=== PATIENT | male | born 1960 | race Caucasian/White ===

== ENCOUNTER 2017-05-10 11:15 | Outpatient (CLI) | payer OTHER ==
--- NOTE | 2017-05-10 13:02 | RAD ---
LUMBAR SPINE FOUR VIEWS: HISTORY: Low back pain. FINDINGS: The lumbar vertebrae maintain height. There is mild loss of disk space at L4-L5 and at L5-S1. Minim al anterolisthesis of L5-S1, which appears stable on flexion and extension views. Facet hypertrophy. No evidence of spondylolysis. IMPRESSION: There are mild degenerative changes of the lumbar spine, as described, with slight listhesis at L5-S1 and posterior facet hypertrophy at L4-L5 and at L5-S1. POS: MIREYA
== END 2017-05-10 11:16 | disposition home or self-care (01) ==
LOC: TBSIIMAG 11:15
PROVIDERS: ATTEND Neurological Surgery
DX: M54.5 Low back pain (principal); M47.817 Spondylosis without myelopathy or radiculopathy, lumbosacral region; M43.17 Spondylolisthesis, lumbosacral region
CPT/HCPCS: 72110

== ENCOUNTER 2017-06-07 10:45 | Outpatient (CLI) | payer OTHER ==
--- NOTE | 2017-06-07 12:39 | MRI ---
MRI LUMBAR SPINE: Date: 06-07-17 Provided Clinical History: Lumbar radiculopathy. FINDINGS: Five lumbar vertebral bodies are demonstrated on the lumbar spine radiographs of 05-10-17. Lumbar ali gnment remains normal. Vertebral body heights and intervertebral disc space heights appear preserved. Mild disc space narrowing at L5-S1. The conus medullaris is normal in signal and terminates at an ap propriate level. The visualized extraspinal soft tissues appear unremarkable. L1-2: There is no significant central canal or foraminal narrowing. L2-3: There is no significant central canal or foraminal narrowing apparent. L3-4: There is mild bilateral facet arthritis. There is no significant central canal or foraminal devin rowing apparent. L4-5: There is bilateral facet arthritis and a broad based disc bulge. There is eccentricity of the d isc bulge in the left foraminal region with associated annular tear. This produces mild left foramina l narrowing. L5-S1: There is a unilateral right sided pars defect and right sided facet arthritis. There is a broa d based disc bulge. The combination of disc bulge and facet arthritis produce right foraminal narrowi ng. There is no significant left sided foraminal narrowing or central canal stenosis apparent. IMPRESSION: 1. Lower lumbar disc and facet degenerative changes in additional to right sided pars defect at L5-S1 producing areas of foraminal narrowing as described above. POS: MIREYA
== END 2017-06-07 10:46 | disposition home or self-care (01) ==
LOC: TBSIIMAG 10:45
PROVIDERS: ATTEND Neurological Surgery
DX: M47.26 Other spondylosis with radiculopathy, lumbar region (principal); M99.73 Connective tissue and disc stenosis of intervertebral foramina of lumbar region
CPT/HCPCS: 72148

== ENCOUNTER 2019-11-25 13:42 | Inpatient (IN) | payer OTHER ==
[2019-11-25] MEDS ORDERED: Iopamidol-370 76% 500 ML 1 ML ONE (13:48)
[2019-11-25 14:24] LABS: #Basophils 0.1 thou/uL (0.0-0.2); #Eosinphils 0.2 thou/uL (0.0-0.7); #Lymphocytes 1.6 thou/uL (1.20-3.40); #Monocytes 0.6 thou/uL (0.11-0.59); #Neutrophils 5.7 thou/uL (1.40-6.50); %Basophils 0.6 % (0.0-1.0); %Eosinophils 1.9 % (0.0-10.0); %Lymphocytes 19.4 % (21.0-51.0); %Monocytes 7.8 % (0.0-10.0); %Neutrophils 70.4 % (42.0-75.0); Hemoglobin 16.7 g/dL (14.0-18.0); Mean Corpuscular HGB CONC 33.9 g/dL (32.0-36.0); Mean Corpuscular Hemoglobin 30.1 pg (27.0-31.0); Mean Corpuscular Volume 88.8 fL (78.0-98.0); Mean Platelet Volume 7.8 fL (7.4-10.4); Platelet Count 279 thou/uL (130-400); RBC Distribution Width 11.8 % (11.5-14.5); Red Blood Cell (RBC) Count 5.55 mill/uL (4.70-6.10); White Blood Cell (WBC) Count 8.1 thou/uL (4.8-10.8)
--- NOTE | 2019-11-25 14:36 | CT ---
Exam: CT angiogram of the chest HISTORY: Chest pain. COVID +3 weeks ago. Shortness of breath. COMPARISON: None TECHNIQUE: CT angiogram of the chest is performed in the axial plane. Three-dimensional reformatted i mages are submitted for interpretation FINDINGS: Mediastinum: No mass, lymphadenopathy or hematoma. HEART: Normal size. No significant pericardial fluid. Aorta: No aneurysm or dissection Upper solid abdominal viscera: CT evidence of cholelithiasis without evidence of cystitis. Nonspecifi c periportal edema. Trachea and central bronchi: Patent Pleural spaces: No effusion Lung parenchyma: Minimal groundglass opacity involving the right lower lobe. Pneumothorax: None Osseous structures: Remote mild compression fracture at T6. Pulmonary arteries: Adequate contrast opacification pulmonary arterial system to the level of segment al arteries. No filling defect to suggest pulmonary embolism IMPRESSION: 1. No evidence of pulmonary artery embolism to the level of the segmental arteries. 2. Parenchymal opacities in the right lower lobe likely representing infiltrate. Location and appeara nce may be due to atypical infiltrate/pneumonia.
--- NOTE | 2019-11-25 14:45 | RAD ---
EXAM: Single view of the chest HISTORY: Covid positive with chest pain COMPARISON: 01/21/2012 FINDINGS: Single view of the chest shows a normal sized cardiomediastinal silhouette. There are quest ionable increased interstitial markings in the lung bases. The bones are unremarkable. IMPRESSION: Questionable bilateral lower lobe infiltrates
[2019-11-25 14:51] LABS: ALT (SGPT) 220 U/L (8-55); AST (SGOT) 228 U/L (5-34); Albumin 4.2 g/dL (3.5-5.0); Alkaline Phosphatase 117 U/L (40-110); Anion Gap 13 mmol/L (10-20); BUN (Urea Nitrogen) 12 mg/dL (8.4-25.7); Bilirubin, Total 1.5 mg/dL (0.2-1.2); Calc. Creatinine Clearance 0 mL/min (70-130); Calcium 9.4 mg/dL (7.8-10.44); Carbon Dioxide 29 mmol/L (22-29); Chloride 101 mmol/L (98-107); Estimated GFR-MDRD 79; Globulin 3.3 g/dL (2.4-3.5); Glucose 99 mg/dL (70-105); Potassium 3.9 mmol/L (3.5-5.1); Protein, Total 7.5 g/dL (6.0-8.3); Sodium 139 mmol/L (136-145)
[2019-11-25] MEDS ORDERED: Ketorolac Tromethamine 30 MG/ML VIAL ONE (14:52)
[2019-11-25] MEDS ORDERED: Azithromycin 500 MG VIAL ONE (14:52)
[2019-11-25] MEDS ORDERED: cefTRIAXone\\ROCEPHIN 1 GM VIAL ONE (16:15)
[2019-11-25] MEDS ORDERED: Sodium Chloride 0.9% 100 ML ONE (16:15)
[2019-11-25] MEDS ORDERED: Acetaminophen 325 MG TAB PO PRN (16:39)
[2019-11-25] MEDS ORDERED: Bisacodyl 5 MG TAB PO PRN (16:39)
[2019-11-25] MEDS ORDERED: Dexamethasone 4 MG TAB ONE (16:43)
[2019-11-25 17:26] LABS: Lactic Acid 2.8 mmol/L (0.5-2.2)
--- NOTE | 2019-11-25 17:53 | HP ---
PRIMARY CARE PROVIDER: Jagjit Jeong MD CHIEF COMPLAINT: Chest pain. HISTORY OF PRESENT ILLNESS: Mr. Call is a pleasant 59-year-old gentleman, who was seen at [facility] on November 25, 2019. Three weeks ago, he had flu-like symptoms. He reports having shortness of breath with exertion. He reports chronic cough that has not changed recently. He reports body aches. He was tested for COVID on November 10, 2019, after approximately a week of symptoms. He was found to be positive for COVID-19 by PCR. His symptoms resolved. He was doing well until today morning when he developed chest pain around 2 a.m. he reports it as sharp, across lower chest, pleuritic, accompanied by shortness of breath, not accompanied by lightheadedness or nausea, no known relieving factors. He also reports checking his blood pressure and finding that it was high. He, therefore, presented to the emergency room. In the emergency room, he was found to have pulmonary infiltrates. He is being admitted for pneumonia. He reports that his chronic cough has not changed. He also denies any fevers. REVIEW OF SYSTEMS: All systems were reviewed and found to be negative except for the pertinent positives mentioned above. PAST MEDICAL HISTORY: Significant for gastroesophageal reflux disease and pneumothorax. PAST SURGICAL HISTORY: Back surgery, hip surgery, and shoulder surgery. SOCIAL HISTORY: The patient is an ex-smoker. He denies alcohol use or recreational drug use. FAMILY HISTORY: He denies any family history of premature coronary artery disease. ALLERGIES: NO KNOWN DRUG ALLERGIES. CURRENT MEDICATIONS: He takes a medication for gastroesophageal reflux disease, but does not know the name. PHYSICAL EXAMINATION: GENERAL: Mr. Call is awake and alert, not in acute distress. VITAL SIGNS: He is afebrile. Blood pressure is 130/70, pulse 86, respiratory rate 14, and oxygen saturation 96% on room air. EYES: No scleral icterus. No conjunctival pallor. ENT: Moist mucosal membranes. No oropharyngeal erythema or exudates. NECK: Supple and nontender. Trachea is midline. RESPIRATORY: Accessory muscles of breathing are not active. Chest wall movements are symmetric bilaterally. Lung examination reveals bi-basal bronchial breathing. CARDIOVASCULAR: S1 and S2 are heard, regular. Peripheral pulses palpable. ABDOMEN: Soft and nontender. Bowel sounds are heard. NEUROLOGIC: Cranial nerves 2 through 12 are intact. MUSCULOSKELETAL: Power is 5/5 in all 4 extremities. SKIN: No rashes or subcutaneous nodules. LYMPHATIC: No cervical lymphadenopathy. PSYCHIATRIC: Normal mood. Normal affect. The patient is oriented to person, place, and time. LABORATORY DATA: Mr. Call's labs and investigations were reviewed. Electrocardiogram showed normal sinus rhythm, no ST changes to suggest an acute coronary syndrome. Chest x-ray showed questionable bilateral lower lobe infiltrates. CT angiogram of the chest did not show any evidence of pulmonary embolism. He had parenchymal opacities in the right lower lobe, likely representing infiltrate. He has an unremarkable CBC, normal electrolytes, normal creatinine, elevated total bilirubin of 1.5, elevated AST of 228, elevated ALT of 220, and elevated alkaline phosphatase of 117. Lactic acid is elevated at 2.4. Troponin I is normal. ASSESSMENT AND PLAN: Mr. Call is a pleasant 59-year-old gentleman, who was seen at [facility] on November 25, 2019. His problem list includes: 1. Pneumonia: Mr. Call is presenting with pneumonia, at least of the right lower lobe. He will be admitted to the hospital for further management. He has received ceftriaxone and azithromycin, is currently receiving dexamethasone. I will continue all 3 given his recent diagnosis of COVID-19 infection. Infectious Disease Service will be consulted for opinion and help with management. 2. Abnormal liver function tests: Could be secondary to COVID-19 infection. We will recheck. If they are not improving, we will investigate further. 3. Gastroesophageal reflux disease: We will start him on PPI. Many thanks for allowing me to participate in your patient's care. Please feel free to contact me with any questions or concerns. LEVEL OF RISK: Moderate. LEVEL OF COMPLEXITY: Moderate. Job ID: [id number]
[2019-11-25] MEDS ORDERED: Ondansetron PF 4 MG/2 ML Vial IVP PRN (18:28)
[2019-11-25] MEDS ORDERED: Ondansetron ODT 4 MG TAB SL PRN (18:28)
[2019-11-25] MEDS: Sodium Chloride 0.9% 1,000 ML IV SCH (20:19)
[2019-11-25] MEDS: Enoxaparin Sodium 40 MG/0.4 ML SYRINGE SC SCH (20:41)
[2019-11-26] MEDS: Sodium Chloride 0.9% 1,000 ML IV SCH (00:19)
[2019-11-26 00:48] VITALS: BMI 32.6
[2019-11-26 07:06] LABS: #Lymphocytes 0.7 thou/uL (1.20-3.40); #Monocytes 0.3 thou/uL (0.11-0.59); %Basophils 0.1 % (0.0-1.0); %Eosinophils 0.3 % (0.0-10.0); %Lymphocytes 10.4 % (21.0-51.0); %Monocytes 3.9 % (0.0-10.0); %Neutrophils 85.4 % (42.0-75.0); Hemoglobin 15.7 g/dL (14.0-18.0); Mean Corpuscular HGB CONC 33.7 g/dL (32.0-36.0); Mean Corpuscular Hemoglobin 29.8 pg (27.0-31.0); Mean Corpuscular Volume 88.4 fL (78.0-98.0); Platelet Count 263 thou/uL (130-400); RBC Distribution Width 11.9 % (11.5-14.5); Red Blood Cell (RBC) Count 5.27 mill/uL (4.70-6.10)
[2019-11-26 07:54] LABS: ALT (SGPT) 815 U/L (8-55); AST (SGOT) 619 U/L (5-34); Albumin 3.8 g/dL (3.5-5.0); Alkaline Phosphatase 158 U/L (40-110); Anion Gap 11 mmol/L (10-20); BUN (Urea Nitrogen) 12 mg/dL (8.4-25.7); Bilirubin, Total 3.7 mg/dL (0.2-1.2); Calc. Creatinine Clearance 112 mL/min (70-130); Calcium 8.9 mg/dL (7.8-10.44); Carbon Dioxide 27 mmol/L (22-29); Chloride 106 mmol/L (98-107); Estimated GFR-MDRD 78; Globulin 2.8 g/dL (2.4-3.5); Glucose 137 mg/dL (70-105); Potassium 4.6 mmol/L (3.5-5.1); Protein, Total 6.6 g/dL (6.0-8.3); Sodium 139 mmol/L (136-145)
[2019-11-26] MEDS ORDERED: Dexamethasone 4 MG TAB PO SCH (08:00)
[2019-11-26] MEDS: Enoxaparin Sodium 40 MG/0.4 ML SYRINGE SC SCH ×2 (09:04→21:17)
[2019-11-26 11:20] LABS: Prothrombin Time 12.9 sec (12.0-14.7)
[2019-11-26 11:28] LABS: ALT (SGPT) 970 U/L (8-55); AST (SGOT) 694 U/L (5-34); Acetaminophen Less than 6.0 mcg/mL (10.0-30.0); Alkaline Phosphatase 178 U/L (40-110); Bilirubin, Direct 3.1 mg/dL (0.1-0.3); Bilirubin, Total 3.9 mg/dL (0.2-1.2); Lipase 26 U/L (8-78); Protein, Total 7.1 g/dL (6.0-8.3)
[2019-11-26 11:49] LABS: HBCM Index 0.13 S/CO (0-0.79); HBSAg Index 0.19 S/CO (0-0.99); Hep A IgM AB Non-Reactive (NonReactive); Hep A IgM S/CO 0.22 S/CO (0-0.79); Hep B Surf Ag Non-Reactive S/CO (NonReactive); Hep C IgG Ab Non-Reactive (NonReactive); Hep C Index 0.25 S/CO (0-0.79); Hepatitis B Core IgM Abs Non-Reactive (NonReactive)
[2019-11-26 12:58] LABS: Troponin I 0.011 ng/mL (< 0.028)
[2019-11-26] MEDS ORDERED: Azithromycin 500 MG in Sodium Chloride 0.9% 250 ML 250 ML IVPB SCH (15:00)
--- NOTE | 2019-11-26 15:31 | PDOC.HOSPP ---
- Subjective Encounter Date: 11/26/19 Encounter Time: 08:40 Subjective: Pt seen for followup re: pneumonia. Denies chest pain, shortness of breath, fevers or chills. - Objective Vital Signs & Weight: Vital Signs (12 hours) Temp Pulse Resp BP Pulse Ox 11/26/19 12:45 97.9 F 104 H 18 147/81 H 95 11/26/19 09:05 97.9 F 106 H 18 155/75 H 96 11/26/19 04:00 97.9 F 99 18 141/77 H 96 Weight Weight 215 lb I&O: 11/25/19 11/26/19 11/27/19 06:59 06:59 06:59 Intake Total 2460 Balance 2460 Result Diagrams: 11/26/19 06:55 11/26/19 06:55 Additional Labs: Labs and MARs reviewed by [place] Hospitalist ROS - Review of Systems Respiratory: denies: cough, dry, shortness of breath, hemoptysis, SOB with excertion, pleuritic pain, sputum, wheezing Cardiovascular: denies: chest pain, palpitations, orthopnea, paroxysmal noc. dyspnea, edema, light headedness - Medication Medications: Active Medications Generic Name Dose Route Start Last Admin Trade Name Freq PRN Reason Stop Dose Admin Dexamethasone 6 mg 11/26/19 08:00 11/26/19 09:04 Decadron PO 6 mg QAM-WM CHANELLE Administration Enoxaparin Sodium 40 mg 11/25/19 21:00 11/26/19 09:04 Lovenox SC 40 mg 0900,2100 CHANELLE Administration Pantoprazole Sodium 40 mg 11/26/19 09:00 11/26/19 09:04 Protonix PO 40 mg DAILY CHANELLE Administration Sodium Chloride 10 ml 11/25/19 21:00 11/26/19 09:04 Flush - Normal Saline IVF 10 ml Q12HR CHANELLE Administration - Exam General Appearance: awake alert Eye: scleral icterus ENT: normocephalic atraumatic, moist mucosa Neck: supple, no thyromegaly Heart: RRR, no rubs Respiratory: CTAB Gastrointestinal: soft, non-tender, non-distended, normal bowel sounds Gastrointestinal - other findings: Scott's sign negative Psychiatric: normal affect, normal behavior Hosp A/P (1) Pneumonia due to COVID-19 virus Code(s): U07.1 - COVID-19; J12.89 - OTHER VIRAL PNEUMONIA Status: Acute (2) Abnormal LFTs Code(s): R94.5 - ABNORMAL RESULTS OF LIVER FUNCTION STUDIES Status: Acute (3) GERD (gastroesophageal reflux disease) Code(s): K21.9 - GASTRO-ESOPHAGEAL REFLUX DISEASE WITHOUT ESOPHAGITIS Status: Chronic - Plan Continue dexamethasone. Cholestatic picture - check hepatitis panel, REZA. If LFTs do not improve, check US abdo/ consider GI consult. Could be secondary to COVID 19 infection vs other etiologies. Continue Protonix.
[2019-11-26] MEDS ORDERED: cefTRIAXone\\ROCEPHIN 1 GM in Sodium Chloride 0.9% 100 ML IVPB SCH (16:00)
[2019-11-26] MEDS ORDERED: Iopamidol-370 76% 500 ML 1 ML ONE (16:34)
--- NOTE | 2019-11-26 18:07 | CON ---
DATE OF CONSULTATION: 11/26/2019 REASON FOR CONSULTATION: Recovered from COVID with abnormal liver function tests. HISTORY OF PRESENT ILLNESS: A 59-year-old who has had chronic history of what he describes as heartburn and burping sensations for the past few months. He was being worked up by his PCP, but then he developed COVID infection. He was treated at home and never got very ill and did not have to take any treatments, and he recovered , and then on the day of admission, he developed this pretty intense pain across the anterior chest and in the back area lasting for about an hour and then he presented to the emergency room, was admitted, had a CT angiogram to rule out pulmonary embolism and that was negative up to the level of segmental arteries. He did have some parenchymal opacities in right lower lobe, probably the residual from his COVID infection. Right now, he is feeling fine. He has chronic low back pain, for which he takes CBD oil and he denies any headaches or visual symptoms, no more cough. No shortness of breath. No abdominal pain, although he did have some tenderness on palpation of the right upper quadrant. No genitourinary symptoms. No joint symptoms. He has no neurological symptoms. PAST MEDICAL HISTORY: Chronic low back pain, prior interventions in the lower back; sciatica, which he manages with CBD oil successfully; history of pneumothorax; chronic eructation the past few months, associated with heartburn without proper workup yet; recent COVID pneumonia, which he has recovered from. FAMILY HISTORY: Noncontributory. 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 He does not take any medication in the home setting other than CBD oil. CURRENT MEDICATIONS: 1. Decadron. 2. Lovenox. 3. Protonix. PHYSICAL EXAMINATION: VITAL SIGNS: Temperature is normal, blood pressure 140/80, pulse 107, respirations 18, and O2 saturation 96. His sats are always above 96 to 97. GENERAL: He appears in no distress. No jugular vein distention. HEENT: Ocular movements conjugate. Oral cavity is fine. NECK: Supple. LUNGS: With symmetric, clear breath sounds. HEART: S1 and S2, regular rate. ABDOMEN: Soft, not distended or tender. No ascites. No bladder distention. A little bit of tenderness in the right upper quadrant. GENITOURINARY: No genital abnormalities. EXTREMITIES: No joint inflammatory activity. 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 No edema. Pulses 1+ in dorsalis pedis. Moves extremities equally. NEUROLOGIC: His cognitive function is perfectly fine. LABORATORY DATA: Hepatitis serology negative. CBC is completely normal except for mild lymphocytopenia. His D-dimer was 0.93. Chemistry with AST 228 and now 619 , ALT 220 and now 815, alkaline phosphatase of 117 and 158. Bilirubin went up from 1.5 to 3.7. Ferritin is 2900. Albumin 4.2. Repeat COVID serology is pending. ASSESSMENT: 1. Chronic back issues, prior surgery. 2. Chronic eructation plus heartburn, which has not been properly worked up yet. 3. Evidence of cholelithiasis and portal edema in the CT of chest. 4. Abnormal liver function tests with suggestion of cholestasis either extra or intrahepatic. 5. Recent COVID infection, which has resolved. DISCUSSION: I consider his COVID infection resolved and I do not see any reason why he would deteriorate almost a month after the original process. He is not infectious anymore. He may still have the virus RNA detectable by PCR as it is known to occur in patients who have recovered. I have spoken to Dr. Campos and he is willing to carry out the CT of abdomen and pelvis, and I think we need to evaluate his biliary tract, pancreas, retroperitoneal area, and so on. I think that is what caused his pain that he described in the chest and in the back area, and he may have passed a stone or something of that nature. He may have biliary dilatation and may need a GI consultation. An ultrasound will be ideal, but they try to avoid those tests because of the fact that the sterilisation technician remains at bedside for a protracted period of time has the high risk of getting infected, so go ahead and order a CT of abdomen and pelvis, discontinue the Decadron, and wait on the COVID test to see if we can order an ultrasound of the biliary tract. It is likely that this problem was present before he developed the COVID infection and hope he does not have a malignancy. Job ID: [id number] MTDD
--- NOTE | 2019-11-26 20:25 | CT ---
ABDOMEN CT WITH CONTRAST PELVIC CT WITH CONTRAST: 11/26/19 HISTORY: Patient who is recently COVID positive. Right upper quadrant tenderness. Pain. Periportal edema. Abno rmal liver panel. COMPARISON: None. FINDINGS: ABDOMEN CT: Chronic changes in the lung bases. Normal heart. Normal caliber aorta. Previously noted periportal ed rahul is not evident on the current examination. Portal vein is patent. CT evidence of cholelithiasis, without evidence of cholecystitis. Appropriate enhancement of the liver. Spleen, pancreas, and adrenal glands have appropriate attenuation and enhancement. No gastrohepatic, retrocrural or periportal lymphadenopathy. No mesenteric mass, lymphadenopathy, free air or free fluid. Gastric mucosa, duodenum, and multiple normal caliber small bowel loops. Normal ileocecal junction. N ormal caliber appendix. Scattered fecal material in a nondistended, nondilated colon. Diverticulosis, without evidence of diverticulitis. Symmetric enhancement of the kidneys. Bilaterally, no obstructiv e uropathy. Subcentimeter hypodensities are too small to characterize but are statistically favored t o be cysts. PELVIC CT: Limited evaluation due to beam attenuation artifact from internal fixation plate along the right sabrina c wing and iliac bone. The urinary bladder has a normal appearance. No pelvic masses, lymphadenopathy , free air or free fluid. No lytic or blastic lesions within the osseous structures. IMPRESSION: CT evidence of cholelithiasis without evidence of cholecystitis. Previously noted periportal edema is less evident on the current study. Appropriate attenuation of the liver. No obvious enhancing masses or hepatic steatosis. POS: PPP
[2019-11-27 06:46] LABS: #Lymphocytes 1.1 thou/uL (1.20-3.40); #Monocytes 0.8 thou/uL (0.11-0.59); #Neutrophils 13.9 thou/uL (1.40-6.50); %Basophils 0.1 % (0.0-1.0); %Eosinophils 0.3 % (0.0-10.0); %Lymphocytes 7.2 % (21.0-51.0); %Monocytes 4.8 % (0.0-10.0); %Neutrophils 87.6 % (42.0-75.0); Mean Corpuscular HGB CONC 32.5 g/dL (32.0-36.0); Mean Corpuscular Hemoglobin 29.4 pg (27.0-31.0); Mean Corpuscular Volume 90.5 fL (78.0-98.0); Platelet Count 319 thou/uL (130-400); RBC Distribution Width 12.2 % (11.5-14.5); Red Blood Cell (RBC) Count 5.43 mill/uL (4.70-6.10); White Blood Cell (WBC) Count 15.8 thou/uL (4.8-10.8)
[2019-11-27 07:04] LABS: ALT (SGPT) 1051 U/L (8-55); AST (SGOT) 350 U/L (5-34); Albumin 4.1 g/dL (3.5-5.0); Alkaline Phosphatase 186 U/L (40-110); Anion Gap 13 mmol/L (10-20); BUN (Urea Nitrogen) 12 mg/dL (8.4-25.7); Bilirubin, Total 1.4 mg/dL (0.2-1.2); Calc. Creatinine Clearance 115 mL/min (70-130); Calcium 8.8 mg/dL (7.8-10.44); Carbon Dioxide 26 mmol/L (22-29); Chloride 104 mmol/L (98-107); Estimated GFR-MDRD 79; Glucose 112 mg/dL (70-105); Potassium 3.9 mmol/L (3.5-5.1); Protein, Total 7.1 g/dL (6.0-8.3); Sodium 139 mmol/L (136-145)
[2019-11-27] MEDS: Enoxaparin Sodium 40 MG/0.4 ML SYRINGE SC SCH ×2 (07:57→21:08)
[2019-11-27 14:16] LABS: SARS-CoV-2 MS2 Positive; SARS-CoV-2 N Gene Positive; SARS-CoV-2 S Gene Positive; SARS-CoV-2 orf1ab Positive
[2019-11-27 16:04] LABS: ANA Symphony (Qualitative) Negative (Negative); ANA Symphony (Quantitative) 0.1 Ratio (< 0.7 Negative); dsDNA IgG Antibody 0.5 IU/mL (<10 Negative)
--- NOTE | 2019-11-27 20:30 | PDOC.HOSPP ---
- Subjective Encounter Date: 11/27/19 Encounter Time: 16:00 Subjective: Pt seen for followup re: abnormal LFTs. No complaints. - Objective Vital Signs & Weight: Vital Signs (12 hours) Temp Pulse Resp BP Pulse Ox 11/27/19 12:30 97.5 F L 73 16 126/76 99 Weight Weight 215 lb I&O: 11/26/19 11/27/19 11/28/19 06:59 06:59 06:59 Intake Total 2460 1570 1210 Balance 2460 1570 1210 Result Diagrams: 11/27/19 06:31 11/27/19 06:31 Additional Labs: Labs and MARs reviewed by pa Hospitalist ROS - Review of Systems Constitutional: denies: fever, chills, sweats, weakness, malaise Cardiovascular: denies: chest pain, palpitations, orthopnea, paroxysmal noc. dyspnea, edema - Medication Medications: Active Medications Generic Name Dose Route Start Last Admin Trade Name Freq PRN Reason Stop Dose Admin Enoxaparin Sodium 40 mg 11/25/19 21:00 11/27/19 07:57 Lovenox SC 40 mg 0900,2100 CHANELLE Administration Pantoprazole Sodium 40 mg 11/26/19 09:00 11/27/19 07:58 Protonix PO 40 mg DAILY CHANELLE Administration Sodium Chloride 10 ml 11/25/19 21:00 11/27/19 07:58 Flush - Normal Saline IVF 10 ml Q12HR CHANELLE Administration - Exam General Appearance: awake alert Eye: scleral icterus ENT: normocephalic atraumatic Neck: symmetric, no thyromegaly Heart: RRR Respiratory: CTAB Gastrointestinal: soft, non-tender Extremities: no cyanosis Musculoskeletal: normal tone Psychiatric: normal affect, normal behavior Hosp A/P (1) Abnormal LFTs Code(s): R94.5 - ABNORMAL RESULTS OF LIVER FUNCTION STUDIES Status: Acute (2) GERD (gastroesophageal reflux disease) Code(s): K21.9 - GASTRO-ESOPHAGEAL REFLUX DISEASE WITHOUT ESOPHAGITIS Status: Chronic (3) Pneumonia due to COVID-19 virus Code(s): U07.1 - COVID-19; J12.89 - OTHER VIRAL PNEUMONIA Status: Ruled-out - Plan LFTs improving, ? likely secondary to passed bile stone. Appreciate ID service input. COVID repeat test most likely false positive. Continue Protonix.
[2019-11-28 05:53] LABS: #Basophils 0.1 thou/uL (0.0-0.2); #Eosinphils 0.1 thou/uL (0.0-0.7); #Lymphocytes 2.7 thou/uL (1.20-3.40); #Monocytes 0.9 thou/uL (0.11-0.59); #Neutrophils 4.8 thou/uL (1.40-6.50); %Basophils 0.8 % (0.0-1.0); %Eosinophils 0.9 % (0.0-10.0); %Lymphocytes 31.3 % (21.0-51.0); %Monocytes 10.7 % (0.0-10.0); %Neutrophils 56.3 % (42.0-75.0); Hemoglobin 14.5 g/dL (14.0-18.0); Mean Corpuscular HGB CONC 34.4 g/dL (32.0-36.0); Mean Corpuscular Hemoglobin 30.8 pg (27.0-31.0); Mean Corpuscular Volume 89.7 fL (78.0-98.0); Mean Platelet Volume 8.1 fL (7.4-10.4); Platelet Count 237 thou/uL (130-400); RBC Distribution Width 12.2 % (11.5-14.5); White Blood Cell (WBC) Count 8.6 thou/uL (4.8-10.8)
[2019-11-28 06:18] LABS: ALT (SGPT) 645 U/L (8-55); AST (SGOT) 126 U/L (5-34); Albumin 3.5 g/dL (3.5-5.0); Alkaline Phosphatase 144 U/L (40-110); Anion Gap 11 mmol/L (10-20); BUN (Urea Nitrogen) 16 mg/dL (8.4-25.7); Bilirubin, Total 0.8 mg/dL (0.2-1.2); Calc. Creatinine Clearance 109 mL/min (70-130); Calcium 8.3 mg/dL (7.8-10.44); Carbon Dioxide 26 mmol/L (22-29); Chloride 106 mmol/L (98-107); Estimated GFR-MDRD 75; Globulin 2.5 g/dL (2.4-3.5); Glucose 84 mg/dL (70-105); Lipase 28 U/L (8-78); Potassium 3.9 mmol/L (3.5-5.1); Sodium 139 mmol/L (136-145)
[2019-11-28] MEDS: Enoxaparin Sodium 40 MG/0.4 ML SYRINGE SC SCH ×2 (07:51→20:30)
--- NOTE | 2019-11-28 10:42 | CON ---
DATE OF CONSULTATION: 11/27/2019 REASON FOR CONSULT: Suspected choledocholithiasis. HISTORY OF PRESENT ILLNESS: Mr. Call is a pleasant 59-year-old male who I saw in the office in the beginning of October for 3-4 months of bloating, epigastric fullness, and gas. He had no symptoms of pain at that time. He also had some rectal bleeding. I had recommended laboratory workup, PPI, and consideration of EGD and colonoscopy at that time, but he wanted to see how the medicine worked fine and we gave him a four week followup. Unfortunately, he became ill a few weeks after that and got COVID and did not follow up or have his labs done. He has recovered now, but on Sunday evening this week, he developed severe epigastric pain that woke him at night and radiated to his right scapula. He ultimately came to the emergency room, where he had a CT of the chest to make sure to have a PE and he did not. There was some parenchymal opacities in the right lower lobe consistent with an atypical pneumonia. With his remote history of COVID, he was retested and his PCR swab came back positive. Dr. Vidal thinks that is from old infection and he does not have an active infection. A CAT scan of the abdomen and pelvis was performed by Dr. Vidal recommendations. He felt the symptoms were that of biliary colic and it seems that he was correct. He had evidence of cholelithiasis and no overt choledocholithiasis. However, there is no mention of the measurement of the common bile duct size on that study. I have reviewed the films with Radiology and they felt it is normal size. The patient had a white count of 8.1 when he came in, it was 15.8 today. His INR was normal. His bilirubin was 1.5 on the 30th, 3.7 on the 1st, 3.9 again later that day and then 1.4 today. His AST was 228 and 619 has come down to 350. His ALT was 280 . His alkaline phosphatase is 186, lipase was 26. He has no pain now. His hepatitis A, B, and C were negative. His REZA was negative. PAST MEDICAL HISTORY: Notable for multiple orthopedic surgeries in the past. He has had reflux. He has a remote history of pneumothorax and a recent COVID pneumonia, which he has recovered from. FAMILY HISTORY: Noncontributory. 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 He was actually going back to work when this episode hit. MEDICATIONS: Medications at home; 1. Omeprazole. Medications presently; 1. Lovenox. 2. Bisacodyl. 3. Protonix. He was on steroids, but that was discontinued. REVIEW OF SYSTEMS: Notable for intermittent rectal bleeding. PHYSICAL EXAMINATION: VITAL SIGNS: Temperature 97, pulse 73, blood pressure 126/76. GENERAL: He is resting comfortably in bed. HEENT: Oropharynx, no lesions. NECK: Supple without any adenopathy. LUNGS: Clear. HEART: Regular rate and rhythm without clicks or murmurs. ABDOMEN: Soft and nontender without rebound or guarding. EXTREMITIES: No clubbing, cyanosis, or edema. LABORATORY STUDIES: Other labs for except for HPI, noted for negative acetaminophen level, blood cultures negative. ASSESSMENT: 1. Mr. Call has gallstones, I think they are symptomatic. He presented with classic epigastric pain radiating to his right scapula. His LFTs bumped. He probably had some transient choledocholithiasis and may still have some choledocholithiasis. He has no pain now though so I suspect he has passed the stone. He has no signs of acute viral hepatitis or viral symptoms. It does not appear his COVID is related to this and it seems that Infectious Disease does not think that either. 2. Recent COVID infection, resolved. CAT scan likely shows some resolving pneumonitis associated with that. He has no respiratory compromise. He has no fatigue. He had lost no weight. He was getting ready to go back to work when this episode of pain . RECOMMENDATIONS: 1. N.p.o. after midnight. Repeat labs including lipase . 2. Surgical consultation in the morning. If his liver function tests are dropping, he has no pancreatitis. I laparoscopic cholecystectomy with IOC. If it is positive, we can perform an ERCP. If his liver function tests are going up, we can perform an ERCP first followed by a laparoscopic cholecystectomy before discharge. Job ID: [id number]
--- NOTE | 2019-11-28 15:11 | PDOC.HOSPP ---
- Subjective Encounter Date: 11/28/19 Encounter Time: 09:40 Subjective: Pt seen for followup re: - Objective Vital Signs & Weight: Vital Signs (12 hours) Temp Pulse Resp BP Pulse Ox 11/28/19 13:12 97.6 F 81 18 138/67 98 11/28/19 08:00 98 11/28/19 05:40 97.7 F 80 18 149/68 H 95 Weight Weight 215 lb I&O: 11/27/19 11/28/19 11/29/19 06:59 06:59 06:59 Intake Total 1570 1210 Balance 1570 1210 Result Diagrams: 11/28/19 05:36 11/28/19 05:36 Additional Labs: Labs and MARs reviewed by ca Hospitalist ROS - Review of Systems Cardiovascular: denies: chest pain, palpitations, orthopnea, paroxysmal noc. dyspnea, edema, light headedness Gastrointestinal: denies: nausea, vomiting, abdominal pain, diarrhea, constipation, melena, hematochezia Skin: denies: rash, lesions, kassy, bruising - Medication Medications: Active Medications Generic Name Dose Route Start Last Admin Trade Name Freq PRN Reason Stop Dose Admin Enoxaparin Sodium 40 mg 11/25/19 21:00 11/28/19 07:51 Lovenox SC Not Given 0900,2100 CHANELLE Pantoprazole Sodium 40 mg 11/26/19 09:00 11/28/19 07:51 Protonix PO 40 mg DAILY CHANELLE Administration Sodium Chloride 10 ml 11/25/19 21:00 11/28/19 07:52 Flush - Normal Saline IVF 10 ml Q12HR CHANELLE Administration - Exam General Appearance: awake alert Eye: anicteric sclera ENT: moist mucosa Neck: supple Heart: RRR Respiratory: CTAB Gastrointestinal: soft, non-tender, normal bowel sounds Extremities: no cyanosis, no clubbing Skin: normal turgor Psychiatric: normal affect, normal behavior Hosp A/P (1) Cholelithiasis Code(s): K80.20 - CALCULUS OF GALLBLADDER W/O CHOLECYSTITIS W/O OBSTRUCTION Status: Acute (2) Abnormal LFTs Code(s): R94.5 - ABNORMAL RESULTS OF LIVER FUNCTION STUDIES Status: Acute (3) GERD (gastroesophageal reflux disease) Code(s): K21.9 - GASTRO-ESOPHAGEAL REFLUX DISEASE WITHOUT ESOPHAGITIS Status: Chronic (4) Pneumonia due to COVID-19 virus Code(s): U07.1 - COVID-19; J12.89 - OTHER VIRAL PNEUMONIA Status: Ruled-out - Plan out of bed/ambulate LFTs improving, likelyu resolving choledocholithiasis. Gen surgery consult pending, pt may need cholecystectomy. COVID repeat test most likely false positive. Continue Protonix.
[2019-11-28] MEDS ORDERED: cefOXitin 2 GM in Sodium Chloride 0.9% 100 ML IVPB SCH (15:30)
--- NOTE | 2019-11-28 16:58 | CON ---
DATE OF CONSULTATION: 11/28/2019 HISTORY OF PRESENT ILLNESS: Mr. Call is a 59-year-old man who was admitted with epigastric abdominal pain, which radiated to both shoulders and back. His symptoms started 2 days previously, associated with some nausea, but no emesis. Prior to this, he has been having intermittent episodes of abdominal bloating. He denies any other change in his bowel habits. He denies any unexplained weight loss. He experienced some shortness of breath at a time, for which he underwent a CT scan of the chest and a pulmonary embolism was excluded. The patient was recently diagnosed with COVID-19 infection on 11/10/2019. He has been without any symptoms approximately 1 week after the initial diagnosis. In this hospitalization, however, COVID test is reportedly positive by PCR. He has been evaluated by Infectious Disease, who thinks that the positive COVID test is a sign of previous infection, but no active COVID pneumonia present. The patient denies any cough, shortness of breath, or syncope at the moment. He denies any fevers or chills. LFTs on admission included a total bilirubin which was 1.5, AST and ALT were 228 and 220 respectively, alkaline phosphatase was 117. On 11/26/2019, total bilirubin was noted at 3.7, AST and ALT have increased at 619 and 815 respectively, and alkaline phosphatase was also increased at 158. Today, LFTs include total bilirubin which is now normal at 0.8, AST and ALT trending down at 126 and 645 respectively, and alkaline phosphatase is 144. This is in sharp contrast from LFTs yesterday with a total bilirubin of 1.4, AST and ALT 350 and 1051 respectively, and alkaline phosphatase of 186. Serum lipase is normal at 28. PAST MEDICAL HISTORY: Pertinent for: 1. Gastroesophageal reflux disease. 2. Recent COVID-19 pneumonia. 3. Spontaneous pneumothorax. 4. Chronic back pain. PAST SURGICAL HISTORY: Pertinent for: 1. Right hip arthroplasty. 2. Back surgery. 3. Shoulder arthroplasty. 4. Left tube thoracostomy. SOCIAL HISTORY: The patient is a former smoker. 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 He admits to occasional intake of ethanol in moderate amount and denies any illicit drug abuse. FAMILY HISTORY: Denies any family history of diabetes mellitus, heart disease, or cancer. PREHOSPITALIZATION MEDICATIONS: Includes omeprazole 40 mg p.o. daily. ALLERGIES: THE PATIENT DENIES ANY KNOWN DRUG ALLERGIES. REVIEW OF SYSTEMS: Ten-point review of systems essentially unremarkable except as stated in past medical history and chief complaint. PHYSICAL EXAMINATION: GENERAL: This reveals a 59-year-old normally developed man who is otherwise coherent and interactive and appears stated age. The patient is alert and oriented x3, appears to be in no acute distress at the time of my evaluation. VITAL SIGNS: Blood pressure 138/67, pulse 81, respiratory rate is 18, temperature is 97.6 degrees Fahrenheit, and oxygen saturation is 98% on room air. HEENT: Normocephalic and atraumatic. Pupils are equally round and reactive to light and accommodation. He has no scleral icterus present. HEART: Regular rate and rhythm. No murmurs or gallops auscultated. LUNGS: Clear to auscultation bilaterally. Breathing, regular and nonlabored. ABDOMEN: Soft with right upper quadrant tenderness to palpation. He has no peritoneal signs on examination. Liver and spleen otherwise nonpalpable below costal margins. EXTREMITIES: 2+ radial and pedal pulses bilaterally. NEUROLOGIC: No focal deficits present. LABORATORY FINDINGS: Today includes a CBC with 8600 white blood cells, hemoglobin and hematocrit 14.5 and 42.2 respectively, and platelet count is 237,000. LFTs as reported above. I have personally reviewed the CT angiography of the chest on 11/25/2019, and CT of the abdomen and pelvis obtained on 11/26/2019, both reveal gallbladder in the usual anatomic location with gallstones and pericholecystic inflammation. IMPRESSIONS: 1. Acute cholecystitis with cholelithiasis. 2. Given the patient's trend of abnormal liver function tests and current clinical scenario, I suspect the patient may have passed a common bile duct stone. 3. Recent COVID-19 infection. RECOMMENDATIONS: Laparoscopic cholecystectomy with intraoperative cholangiogram. The above findings and recommendation have been discussed with the patient. I have advised the patient of the risks and benefits of the proposed surgery to include, but not limited to bleeding, infection, injury to bile duct or surrounding structures. This information was provided to the patient and his nurse witnessing. The patient has granted consent for the proposed surgical intervention. Thank you again, Dr. Arriaza, for allowing me the opportunity to participate in the care of this patient. Job ID: [id number]
--- NOTE | 2019-11-28 18:15 | PRG ---
DATE OF SERVICE: 11/28/2019 OBJECTIVE: VITAL SIGNS: Temperature is 97.6, pulse 81, blood pressure 138/67. ABDOMEN: Nontender. He feels well. LABORATORY DATA: CBC normal today. Bilirubin is down to 0.8. AST is down to 126, ALT 645, alkaline phosphatase 144. ASSESSMENT: 1. Symptomatic cholelithiasis. 2. Transient choledocholithiasis. It is possible that he still has a stone in his common bile duct, but with his trending down numbers, he has probably passed one. RECOMMENDATIONS: 1. Laparoscopic cholecystectomy with IOC. The patient states General Surgery told him they are going to do this tomorrow. 2. The patient has a remote history of seeing me in the office about a month ago before his COVID infection. He was noting intermittent rectal bleeding. I have recommended when he recovers from his cholecystectomy, consider colonoscopy with his history of rectal bleeding at age over 51 and no prior screening. 3. As far as his reflux, I told him that his reflux was probably his gallbladder, but he can continue to take the PPIs as needed. I would just use it on a p.r.n. basis after the cholecystectomy, and if he needs it daily, he can continue it. 4. I will be available tomorrow for ERCP if he has a positive IOC. I have been consented for that before his surgery. Job ID: [id number]
[2019-11-29 06:54] LABS: ALT (SGPT) 545 U/L (8-55); AST (SGOT) 109 U/L (5-34); Albumin 3.5 g/dL (3.5-5.0); Alkaline Phosphatase 157 U/L (40-110); Bilirubin, Direct 0.5 mg/dL (0.1-0.3); Bilirubin, Total 0.7 mg/dL (0.2-1.2); Protein, Total 6.2 g/dL (6.0-8.3)
[2019-11-29] MEDS: Enoxaparin Sodium 40 MG/0.4 ML SYRINGE SC SCH (09:03)
[2019-11-29] MEDS ORDERED: Midazolam HCl 2 mg/2 ml Vial ONE (09:53)
[2019-11-29] MEDS ORDERED: Lidocaine 2% Jelly 5 ML TUBE ONE (09:53)
[2019-11-29] MEDS ORDERED: Fentanyl 100 MCG/2 ML VIAL ONE ×4 (09:53→13:18)
[2019-11-29] MEDS ORDERED: Iopamidol 20 ML ONE (10:14)
[2019-11-29] MEDS ORDERED: Bupivacaine 0.25% HCL 30 ML VIAL ONE (10:20)
[2019-11-29] MEDS ORDERED: Lidocaine 1% w/Epinephrine 1:100K 20 ML VIAL ONE (10:20)
[2019-11-29] MEDS ORDERED: Iopamidol 50 ML FS ONE (12:30)
[2019-11-29] MEDS ORDERED: Indomethacin 50 MG SUPP ONE (12:30)
[2019-11-29] MEDS ORDERED: traMADol HCl 50 MG TAB PO PRN ×2 (12:46)
[2019-11-29] MEDS ORDERED: Ibuprofen 600 MG TAB PO PRN (12:46)
[2019-11-29] MEDS ORDERED: Propofol 500 MG/50 ML VIAL ONE (13:03)
[2019-11-29] MEDS ORDERED: Promethazine HCl 25 MG/ML VIAL ONE (13:19)
--- NOTE | 2019-11-29 13:29 | RAD ---
ERCP: DATE: 11/29/2019. PROVIDED CLINICAL HISTORY: Stones. FINDINGS: Multiple spot fluoroscopic images of the abdomen demonstrate opacification of the common duct. There is no evidence for a filling defect involving the common duct. The left-sided intrahepatic biliary system appears normal. The right-sided intrahepatic biliary system is not opacified. IMPRESSION: As above. POS: JONES
[2019-11-29] MEDS ORDERED: Meperidine HCl/PF 25 MG/ML VIAL SLOW IVP PRN (13:43)
[2019-11-29] MEDS ORDERED: Ondansetron HCl/PF 4 MG/2 ML Vial IVP PRN (13:43)
[2019-11-29] MEDS ORDERED: HYDROmorphone 2 MG/ML VIAL SLOW IVP PRN (13:43)
[2019-11-29] MEDS ORDERED: Promethazine HCl 25 MG/ML VIAL IM PRN (13:43)
[2019-11-29] MEDS ORDERED: Promethazine HCl 25 MG/ML VIAL SLOW IVP PRN (13:43)
[2019-11-29] MEDS ORDERED: Succinylcholine Chloride 20 MG/ML 10 ml SYRINGE FS ONE (13:47)
[2019-11-29] MEDS ORDERED: Rocuronium Bromide 10 MG/ML (10ML VIAL) ONE (13:47)
[2019-11-29] MEDS ORDERED: PROPOFOL 200 MG/20 ML VIAL ONE (13:47)
[2019-11-29] MEDS ORDERED: Glycopyrrolate 0.2 MG/ML 5 ML SYRINGE ONE (13:47)
[2019-11-29] MEDS ORDERED: Ondansetron PF 4 MG/2 ML Vial ONE (13:47)
[2019-11-29] MEDS ORDERED: Dexamethasone 20 MG/5 ML VIAL ONE (13:47)
[2019-11-29] MEDS ORDERED: Lidocaine 1% PF 5 ML VIAL ONE (13:47)
--- NOTE | 2019-11-29 16:15 | RAD ---
EXAM: XR Cholangiogram in Surgery PROVIDED CLINICAL HISTORY: Cholelithiasis. COMPARISON: None FINDINGS\IMPRESSION: 9 images from an intraoperative cholangiogram is submitted for interpretation. Initial images demonst rate surgical instruments overlying the abdomen with surgical clips seen overlying the right upper quadrant. Subsequent imaging demonstrates cannulation of the cystic duct with opacification of the co mmon duct and most proximal intrahepatic bile ducts. Several small filling defects are seen in the distal common duct which may be secondary to choledocholithiasis. Images demonstrating free spill of contrast into the duodenum are not submitted. Correlation with intraoperative findings is recommended. Fluoroscopy: Time-0.08 seconds Dose-2.31 mGy
--- NOTE | 2019-11-29 19:16 | PDOC.HOSPP ---
- Subjective Encounter Date: 11/29/19 Encounter Time: 17:00 - Objective Vital Signs & Weight: Vital Signs (12 hours) BP Pulse Ox 11/29/19 17:49 170/122 H 11/29/19 08:00 96 Weight Weight 215 lb I&O: 11/28/19 11/29/19 11/30/19 06:59 06:59 06:59 Intake Total 1210 Balance 1210 Result Diagrams: 11/28/19 05:36 11/28/19 05:36 Hospitalist ROS - Medication Medications: Active Medications Generic Name Dose Route Start Last Admin Trade Name Freq PRN Reason Stop Dose Admin Pantoprazole Sodium 40 mg 11/26/19 09:00 11/29/19 09:03 Protonix PO Not Given DAILY CHANELLE Sodium Chloride 10 ml 11/25/19 21:00 11/29/19 09:04 Flush - Normal Saline IVF Not Given Q12HR CHANELLE Hosp A/P (1) Abnormal LFTs Code(s): R94.5 - ABNORMAL RESULTS OF LIVER FUNCTION STUDIES Status: Acute (2) Cholelithiasis Code(s): K80.20 - CALCULUS OF GALLBLADDER W/O CHOLECYSTITIS W/O OBSTRUCTION Status: Acute (3) GERD (gastroesophageal reflux disease) Code(s): K21.9 - GASTRO-ESOPHAGEAL REFLUX DISEASE WITHOUT ESOPHAGITIS Status: Chronic (4) Pneumonia due to COVID-19 virus Code(s): U07.1 - COVID-19; J12.89 - OTHER VIRAL PNEUMONIA Status: Ruled-out - Plan Chart reviewed.
--- NOTE | 2019-11-29 20:16 | OP ---
DATE OF PROCEDURE: 11/29/2019 PREOPERATIVE DIAGNOSES: 1. Acute cholecystitis. 2. Cholelithiasis. POSTOPERATIVE DIAGNOSES: 1. Acute cholecystitis. 2. Cholelithiasis. 3. Choledocholithiasis. OPERATION PERFORMED: Laparoscopic cholecystectomy with intraoperative cholangiogram. ANESTHESIA: General endotracheal. ESTIMATED BLOOD LOSS: 20 mL. FLUIDS GIVEN: 1000 mL crystalloids. TOTAL FLUOROSCOPY TIME: 8 seconds using 17 mL of Conray contrast. INDICATIONS FOR OPERATION: A 59-year-old man, who was admitted with recurrent epigastric right upper quadrant abdominal pain. The patient was noted with elevated LFTs, which appear to be normalizing. Nevertheless, the patient was brought to the operating room today for laparoscopic cholecystectomy with intraoperative cholangiogram. Findings are consistent with distended gallbladder in the usual anatomic location completely encased by omental adhesions. Additional findings include multiple distal common bile duct filling defects suggestive of choledocholithiasis. DESCRIPTION OF PROCEDURE: Informed consent was obtained from the patient, who was brought to the operating room, placed in supine position. Following general anesthesia, abdomen was sterilely prepped and draped in usual fashion. The skin below the umbilicus was infiltrated with 0.25% Marcaine with epinephrine. A small curvilinear infraumbilical incision was made using 11 scalpel. Umbilical stalk was grasped with Matt and elevated. Veress needle was inserted through the incision and placed in the peritoneal cavity, through which the abdomen was insufflated with 3 L of CO2 gas. Intraabdominal pressure was noted at 2 mmHg. Following abdominal insufflation, Veress needle was removed and a 5 mm trocar was introduced using a Visiport under laparoscopy. Laparoscopy confirmed proper placement of the port, no injuries to underlying structures. Additional laparoscopy reveals the right upper quadrant completely encased by omental adhesions. Under direct laparoscopy, a 12 mm epigastric and two 5 mm right lateral subcostal ports were placed after the overlying skin was infiltrated with 0.25% Marcaine with epinephrine and appropriate incision was made. The patient was placed in a reverse Trendelenburg position, rotated to his left. I introduced a [place] dissector with cautery. Using this, to take down omental adhesions to expose the fundus of the gallbladder. Prestige grasper was introduced through the right lateral subcostal port grasping the fundus of the gallbladder, which was elevated cephalad. Omental adhesions were then taken down from remainder of the gallbladder using cautery with good hemostasis. A second Prestige grasper was introduced through the right medial subcostal port grasping the Rosina's pouch, which was retracted laterally. I opened the peritoneum of the gallbladder at the infundibulum, and the cystic duct and artery were carefully dissected free from surrounding structures, and critical view was obtained following the cystic duct into the common bile duct. Because of the elevated LFTs, we decided to perform a cholangiogram. One clip was applied at the junction of the cystic duct and gallbladder. I then opened the cystic duct proximal to the securing clip using an Endo Shear. Cholangiocatheter was introduced into the peritoneal cavity, inserted into the cystic ductal lumen and then secured with a single clip. The catheter was flushed first with saline and then fluoroscopy was initiated using 17 mL of Conray contrast to perform the cholangiogram, which revealed multiple filling defects in the distal common bile duct. The hepatic radicals were readily visualized. At this juncture, the securing clip was removed and the catheter was removed from the peritoneal cavity. The cystic duct was then divided between clips, applying 2 clips proximally. The cystic artery was divided between clips in a similar fashion, applying 2 clips proximally. The gallbladder itself was removed from the liver bed using cautery and delivered off the abdominal cavity using an EndoCatch. Operative site was irrigated with saline solution. The clips remained in place. Finding, no other pathology. Laparoscopy was terminated. Fascia of the epigastric port was closed using 0 Vicryl suture and Endoclosure device on the laparoscopy. The abdomen was desufflated. All ports and instruments were removed and accounted for. The patient will be taken to the endoscopy suit, where the consular officer is proposing ERCP with common bile duct stone extraction. He tolerated this procedure and was transferred to the endoscopy suite in a stable condition. Job ID: [id number]
[2019-11-29] MEDS: Acetaminophen 500 MG TAB PO PRN (20:31)
[2019-11-30] MEDS ORDERED: Melatonin 3 MG TAB PO PRN (00:53)
[2019-11-30 06:20] LABS: #Lymphocytes 1.3 thou/uL (1.20-3.40); #Monocytes 0.8 thou/uL (0.11-0.59); #Neutrophils 9.1 thou/uL (1.40-6.50); %Basophils 0.2 % (0.0-1.0); %Eosinophils 0.3 % (0.0-10.0); %Lymphocytes 11.9 % (21.0-51.0); %Monocytes 7.2 % (0.0-10.0); %Neutrophils 80.5 % (42.0-75.0); Mean Corpuscular HGB CONC 32.6 g/dL (32.0-36.0); Mean Corpuscular Hemoglobin 28.9 pg (27.0-31.0); Mean Corpuscular Volume 88.5 fL (78.0-98.0); Mean Platelet Volume 8.1 fL (7.4-10.4); Platelet Count 261 thou/uL (130-400); RBC Distribution Width 12.1 % (11.5-14.5); Red Blood Cell (RBC) Count 5.18 mill/uL (4.70-6.10); White Blood Cell (WBC) Count 11.3 thou/uL (4.8-10.8)
[2019-11-30 06:32] LABS: ALT (SGPT) 486 U/L (8-55); AST (SGOT) 94 U/L (5-34); Albumin 3.6 g/dL (3.5-5.0); Alkaline Phosphatase 182 U/L (40-110); Anion Gap 9 mmol/L (10-20); BUN (Urea Nitrogen) 16 mg/dL (8.4-25.7); Bilirubin, Direct 0.5 mg/dL (0.1-0.3); Bilirubin, Total 0.9 mg/dL (0.2-1.2); Calc. Creatinine Clearance 100 mL/min (70-130); Calcium 8.6 mg/dL (7.8-10.44); Carbon Dioxide 29 mmol/L (22-29); Chloride 101 mmol/L (98-107); Estimated GFR-MDRD 68; Glucose 109 mg/dL (70-105); Lipase 55 U/L (8-78); Magnesium 2.5 mg/dL (1.6-2.6); Phosphorus 4.6 mg/dL (2.3-4.7); Potassium 4.3 mmol/L (3.5-5.1); Protein, Total 6.2 g/dL (6.0-8.3); Sodium 135 mmol/L (136-145)
[2019-11-30] MEDS ORDERED: Saccharomyces boulardii 250 MG CAP PO SCH (09:00)
[2019-11-30] MEDS ORDERED: Enoxaparin Sodium 40 MG/0.4 ML SYRINGE SC SCH (09:00)
--- NOTE | 2019-11-30 11:27 | OP ---
DATE OF PROCEDURE: 11/29/2019 PROCEDURES: Endoscopic retrograde cholangiopancreatography with sphincterotomy and removal of common bile duct stones. PREPROCEDURE DIAGNOSES: 1. Admission with biliary colic and elevated liver function tests. 2. Recent COVID infection, resolved. 3. Status post lap balwinder today with IOC positive for choledocholithiasis. POSTPROCEDURE DIAGNOSES: Choledocholithiasis, status post removal after sphincterotomy and duct swept x3 with procedure terminated with normal occlusion cholangiogram and drainage of biliary tree, both endoscopically and radiographically documented. ANESTHESIA: Endotracheal anesthesia was carried over from the OR, he was brought straight from his lap balwinder over to the fluoroscopy suite. DESCRIPTION OF PROCEDURE: The patient had been consented for ERCP prior to his lap balwinder. He was placed in the prone position on the fluoroscopy table, intubated from the OR. Indocin suppositories were placed in his rectum to decrease risk of post ERCP pancreatitis. The endoscope was advanced through the esophagus, stomach, into the second and third portions of the duodenum and ampulla was brought into view. The common bile duct was cannulated easily. Wire was placed and cholangiogram revealed some faint small filling defects in the distal duct. The sphincterotomy was performed. The duct was swept and several large lobulated yellow pigment stones were removed. At the termination of procedure, occlusion cholangiogram showed no further filling defects and good drainage of the biliary tree, both endoscopically and radiographically. There was good hemostasis in the sphincterotomy site. The scope was removed. The stomach was desufflated and the patient was extubated and brought to recovery room in stable condition. Job ID: [id number]
[2019-11-30] MEDS: Acetaminophen 500 MG TAB PO PRN (14:28)
[2019-11-30 16:29] VITALS: BP 125/69; TEMP 98
--- NOTE | 2019-11-30 18:54 | DIS ---
DATE OF ADMISSION: 11/25/2019 DATE OF DISCHARGE: 11/30/2019 DISCHARGE DISPOSITION: Home. FOLLOWUP: 1. Follow up with primary care physician in 1 week. 2. Follow up with General Surgery, Dr. Tam on 16 December 2019 at 2 p.m. The patient needs an LFTs prior to appointment. The patient was advised to contact Dr. Tam's office and to confirm his appointment. ALLERGIES: NO KNOWN DRUG ALLERGIES. BRIEF HOSPITAL COURSE: The patient is a 59-year-old male with recent diagnosis of COVID-19, presented to the hospital with shortness of breath along with pleuritic chest pain. He was found to have abnormal LFTs. His initial bilirubin was 1.5 with AST of 228, ALT of 220 with alkaline phosphatase 117. Next day, his total bilirubin increased to 3.7 with AST of 619, ALT of [address] angiogram of the chest on admission was negative for pulmonary embolism. It showed right lower lobe parenchymal opacities consistent with probable infiltrate. An abdominal CT and pelvis CT showed cholelithiasis. The patient was evaluated by General surgery and Gastroenterology. He underwent laparoscopic cholecystectomy with ERCP. His LFTs have improved. He has been cleared by consultants for discharge. FINAL DIAGNOSES: 1. Symptomatic cholelithiasis with choledocholithiasis status post endoscopic retrograde cholangiopancreatography with sphincterotomy and removal of the common bile duct stones. 2. Acute cholecystitis status post laparoscopic cholecystectomy. 3. Recent COVID-19 infection. 4. Gastroesophageal reflux disease. 5. Abnormal LFTs secondary to above. 6. Obesity with a BMI of 32.7. 7. Lactic acidosis on admission. 8. The patient understands the above plan of care. He was advised to seek medical attention if he develops any new symptoms. The patient stated understanding. Job ID: [id number] [id number]
== END 2019-11-30 16:16 | disposition home or self-care (01) | DRG 418 ==
LOC: ERS 13:42 → T4-A 15:40
PROVIDERS: ADMIT Internal Medicine; ATTEND Internal Medicine
PROC: 0FT44ZZ Resection of Gallbladder, Percutaneous Endoscopic Approach (ICD-10-PCS; principal; 2019-11-29)
PROC: BF101ZZ Fluoroscopy of Bile Ducts using Low Osmolar Contrast (ICD-10-PCS; 2019-11-29)
PROC: 0F798ZZ Dilation of Common Bile Duct, Via Natural or Artificial Opening Endoscopic (ICD-10-PCS; 2019-11-29)
DX: K80.42 Calculus of bile duct with acute cholecystitis without obstruction (principal); E87.2 Acidosis; Z86.19 Personal history of other infectious and parasitic diseases; K21.9 Gastro-esophageal reflux disease without esophagitis; R14.2 Eructation; K76.89 Other specified diseases of liver; M54.9 Dorsalgia, unspecified; G89.29 Other chronic pain; E66.9 Obesity, unspecified; Z87.891 Personal history of nicotine dependence; Z68.32 Body mass index [BMI] 32.0-32.9, adult
CPT/HCPCS: 36415; 47532; 71045; 71275; 74177; 74330; 80048; 80053; 80074; 80076; 80307; 82550; 82728; 83605; 83690; 83735; 83880; 84100; 84484; 85025; 85379; 85610; 86038; 86140; 86225; 87040; 87635; 88304; 93005; 96365; 96367; 96375; J0456; J0696; J1100; J1650; J1885; J2001; J2250; J2405; J2550; J2704; J3010; J3490; J8540; Q9966; Q9967; S0020; U0003

== ENCOUNTER → 2021-02-15 | Day surgery (SDC) | payer OTHER ==
[2021-02-14 13:48] VITALS: BMI 31.9
[~2021-02-15] MED LIST: Iopamidol-M 200 41% 20 ML VIAL ONE; Lidocaine 1% PF 5 ML VIAL ONE; Sodium Bicarbonate 2.5 MEQ/5 ML VIAL ONE
[2021-02-15 07:41] VITALS: TEMP 98.3
[2021-02-15 09:52] VITALS: BP 142/73
== END ==
LOC: RAD 07:06 → EDSTATUS 08:00
PROVIDERS: ATTEND Neurological Surgery
PROC: B00B1ZZ Plain Radiography of Spinal Cord using Low Osmolar Contrast (ICD-10-PCS; principal; 2021-02-15)
DX: M48.061 Spinal stenosis, lumbar region without neurogenic claudication (principal); M54.16 Radiculopathy, lumbar region; M48.07 Spinal stenosis, lumbosacral region; I70.0 Atherosclerosis of aorta; K57.30 Diverticulosis of large intestine without perforation or abscess without bleeding; G89.29 Other chronic pain; Z98.890 Other specified postprocedural states
CPT/HCPCS: 62304; 72132

== ENCOUNTER 2024-04-02 08:21 | Outpatient (CLI) | payer SELFPAY | END 2024-04-02 08:22 | disposition home or self-care (01) | LOC: SCSRAD 08:21 | PROVIDERS: ATTEND Family Medicine | DX: R05.3 Chronic cough (principal) | CPT/HCPCS: 71046 ==